=== PATIENT | female | born 1990 | race Caucasian/White ===

== ENCOUNTER 2019-12-16 14:01 | Emergency (ER) | payer SELFPAY | END 2019-12-16 14:40 | disposition home or self-care (01) | LOC: ED 14:01 | DX: Z53.21 Procedure and treatment not carried out due to patient leaving prior to being seen by health care provider (principal) ==

== ENCOUNTER 2020-06-14 11:27 | Emergency (ER) | payer OTHER, BC ==
[~2020-06-14] VITALS: Ht 180.3 cm; Wt 81.7 kg
--- OUTSIDE RECORDS SUMMARY | 2020-06-14 11:30 | XMS ---
PreManage Notification: ELIANA GARDNER Security Curatorial Specialist Events 1 event(s) in the past 18 months Most recent security events: Elopement at [facility] 12/16/2019 14:02 - Other Details: PATIENT LWBS. CRITERIA MET - Group Notification CARE PROVIDERS There are no care providers on record at this time. Dustin has no Care Guidelines for this patient. EDru VISIT COUNT (12 MO.) 2 [facility] TOTAL 2 NOTE: Visits indicate total known visits. ED/C VISIT TRACKING (12 MO.) [facility] COMPLAINT: - HEAD INJURY 12/16/2019 14:02 [facility] TYPE: Emergency COMPLAINT: - RIGHT SIDE FACE PAIN, LEFT WITHOUT BEING SEEN DIAGNOSES: - Procedure and treatment not carried out due to patient leavin INPATIENT VISIT TRACKING (12 MO.) No inpatient visits to display in this time frame [email or web address]
[2020-06-14] MEDS ORDERED: GABAPENTIN600 MG PO (11:39)
[2020-06-14] MEDS ORDERED: CITALOPRAM HBR20 MG PO (11:39)
== END 2020-06-14 12:15 | disposition home or self-care (01) ==
LOC: ED 11:27
DX: S06.0X0A Concussion without loss of consciousness, initial encounter (principal); F41.9 Anxiety disorder, unspecified; F90.9 Attention-deficit hyperactivity disorder, unspecified type; F17.200 Nicotine dependence, unspecified, uncomplicated; Z79.899 Other long term (current) drug therapy; X58.XXXA Exposure to other specified factors, initial encounter
CPT/HCPCS: 99283

== ENCOUNTER 2021-07-17 11:58 | Emergency (ER) | payer OTHER, BC ==
[~2021-07-17] VITALS: Ht 180.3 cm; Wt 90.7 kg
[~2021-07-17 11:58] MED LIST: CITALOPRAM HBR20 MG PO; GABAPENTIN600 MG PO
--- OUTSIDE RECORDS SUMMARY | 2021-07-17 12:00 | XMS ---
PreManage Notification: ELIANA GARDNER [employer] Custodian Events No recent Security Events currently on file CRITERIA MET - Group Notification CARE PROVIDERS PAKO SHORE Physician Ginning Operator Current PHONE: [phone] Dustin has no Care Guidelines for this patient. [place] VISIT COUNT (12 MO.) [address] [facility] TOTAL 2 NOTE: Visits indicate total known visits. ED/UCC VISIT TRACKING (12 MO.) 07/17/2021 11:59 [facility] TYPE: Emergency COMPLAINT: - L RING FINGER INJURY 04/21/2021 14:39 [facility] [place] TYPE: Emergency DIAGNOSES: - shortness of breath - Viral infection, unspecified - Mild intermittent asthma with (acute) exacerbation INPATIENT VISIT TRACKING (12 MO.) No inpatient visits to display in this time frame [email or web address]
[2021-07-17] MEDS ORDERED: VENTOLIN HFA18 GM INH (14:26)
[2021-07-17] MEDS ORDERED: CEPHALEXIN500 M1 PO (15:35)
== END 2021-07-17 15:51 | disposition home or self-care (01) ==
LOC: ED 11:58
DX: S61.432A Puncture wound without foreign body of left hand, initial encounter (principal); W22.8XXA Striking against or struck by other objects, initial encounter; Y99.0 Civilian activity done for income or pay; Z23 Encounter for immunization; F17.200 Nicotine dependence, unspecified, uncomplicated; Z88.8 Allergy status to other drugs, medicaments and biological substances; Z79.899 Other long term (current) drug therapy
CPT/HCPCS: 73130; 90471; 90715; 99283-25